=== PATIENT | female | born 1990 | race Hispanic/Latino ===

== ENCOUNTER 2016-04-12 03:17 | Inpatient (IN) | payer OTHER ==
[~2016-04-12] VITALS: Ht 147.3 cm; Wt 58.5 kg
[2016-04-12] MEDS ORDERED: Lactated Ringer's 1,000 ML IV PRN ×2 (03:33→07:55)
[2016-04-12] MEDS ORDERED: Hemorrhage Kit, Post Partum XX ONE ×3 (03:35→13:25)
[2016-04-12] MEDS ORDERED: Carboprost 250 mCg/mL Inj IM PRN ×3 (03:35→13:25)
[2016-04-12] MEDS ORDERED: Sodium Chloride LOK Flush 10 mL Syringe IVFLUSH PRN (03:35)
[2016-04-12] MEDS ORDERED: Oxytocin 10 Unit/mL Inj IM PRN ×3 (03:35→13:25)
[2016-04-12] MEDS ORDERED: Oxytocin 30 Units/500 mL LR 30 UNITS in IV Premix 1 EACH IV PRN ×3 (03:35→13:25)
[2016-04-12] MEDS ORDERED: Ondansetron 2 mg/mL 2 mL Inj IVPUSH PRN ×2 (03:35→08:45)
[2016-04-12] MEDS ORDERED: Methylergonovine 0.2 mg/mL Inj IM PRN ×3 (03:35→13:25)
[2016-04-12 04:13] LABS: Mean Corpuscular Hemoglobin 25.3 pg (27.0-35.0); Mean Corpuscular Volume 81.2 fL (81-100)
[2016-04-12] MEDS ORDERED: PREN1TAB25 PO (05:27)
[2016-04-12] MEDS ORDERED: ACET325T51 PO (05:27)
[2016-04-12] MEDS: fentaNYL-PF 50 mCg/mL 2 mL Inj IVPUSH PRN ×3 (06:48→13:05)
--- NOTE | 2016-04-12 07:42 | PCM.HPOB ---
Subjective Referring Provider: Admitting Physician: Steven Pratt MD Primary Care Physician: Steven Pratt MD Attending Physician: Steven Pratt MD Chief Complaint contractions History of Present History of Present Illness 26yo at 39 w0d by EDC is 04/15/2016 dated by 11wks U/S. OB Problem List: 1. Abnormal pap. 09/26/2015 -PAP ASCUS HPV (+).Plan rpt pap in 12 months. 2. L&I case due to back pain, shoulder pain 3. Tight nuchal cord around neck ( discussed with radiology) and foci in left ventricle seen by perinatologist: abnormal cfDNA test (X triploidy) and mother is a carrier of alpha-sarcoglycanopathy along with consanguinity: counseled by MFM, declined amniocentesis. Father of the baby not tested secondary to job limitations. Plan: chromosomal testing. 4. GERD. 5. Anemia (on iron) not complaint. encouraged to continue to take iron as prescribed. 6. Vit D deficiency, non complaint. encouraged to take Vit D as prescribed. 7. Headache 8. Anxiety. presented C/o of contractions was 5 cm dilated/80%/-2 intact. Past Medical History Gynecologic History: Abnormal pap. 09/26/2015 -PAP ASCUS HPV (+).Plan rpt pap in 12 months. Medical History: 1. Abnormal pap. 09/26/2015 -PAP ASCUS HPV (+).Plan rpt pap in 12 months. 2. L&I case due to back pain, shoulder pain 3. headache. 4. GERD. 5. Anemia . 6. Vit D deficiency 7. Anxiety Surgical History: none Hx Tobacco Use: No Hx Alcohol Use: No Hx Substance Use: No Past Family History Family History DM grandparents. parents in good health Review of Systems ROS 10 points ROS is negative except for items in HPI. Allergy Coded Allergies: No Known Allergies (Verified Allergy, Unknown, 03/13/14) Exam Vital Signs 130/75 HR 85 RR 18 T 36.4 Exam FHT 140 moderate variablity positive accclerations and no declerations TOCO Q 2-4 min Constitutional: Well-developed HEENT: Atraumatic Lungs: Clear to Auscultation Heart: Normal S1, Normal S2, No Murmurs/Rubs/Gallops Abdomen: Gravid Extremities: Pulses Palpable x4 Neurological/Psychiatric: Alert, Oriented X3 Neuro: Normal DTRs Labs/Diagnostics Lab/Diagnostic Information Laboratory Tests 72 Hours Test 04/12/16 04:00 White Blood Count 13.8th/mm3 (3.8-10.1) Red Blood Count 4.46mil/mm3 (3.90-5.20) Hemoglobin 11.3g/dL (12.0-15.6) Hematocrit 36.2% (35.0-46.0) Mean Corpuscular Volume 81.2fL (81-100) Mean Corpuscular Hemoglobin 25.3pg (27.0-35.0) Mean Corpuscular Hemoglobin Concent 31.2% (32.0-37.0) Red Cell Distribution Width 15.6% (12.3-15.4) Platelet Count 224bil/L (150-400) Maternal Blood Type: O (positive) Antibody Screen: negative Group B Strep Results: Negative (at 03/12/16) Additional Information Rubella immune HbsAg NR HIV NR PRP NR OB Intrapartum Assessment/Plan Assessment 26yo at 39 w0d by EDC is 04/15/2016 dated by 11wks U/S. Active labor, intact, GBS negative OB Problem List: 1. Abnormal pap. 09/26/2015 -PAP ASCUS HPV (+).Plan rpt pap in 12 months. 2. L&I case due to back pain, shoulder pain 3. Tight nuchal cord around neck ( discussed with radiology) and foci in left ventricle seen by perinatologist: abnormal cfDNA test (X triploidy) and mother is a carrier of alpha-sarcoglycanopathy along with consanguinity: counseled by [facility], declined amniocentesis. Father of the baby not tested secondary to job limitations. Plan: chromosomal testing. 4. GERD. 5. Anemia (on iron) not complaint. encouraged to continue to take iron as prescribed. 6. Vit D deficiency, non complaint. encouraged to take Vit D as prescribed. 7. Headache 8. Anxiety. Pain Management: admit with orders and labs. Hector Shields MD Apr 12, 2016 07:42
[2016-04-12] MEDS ORDERED: Lactated Ringer's 500 ML IV ONE (08:43)
[2016-04-12] MEDS ORDERED: EPHEDrine Sulfate 50 mg/mL Inj IVPUSH PRN (08:45)
[2016-04-12] MEDS ORDERED: fentaNYL 2 mCg/mL-Bupiv 0.125% 100 ML EPIDURAL SCH (08:45)
[2016-04-12] MEDS ORDERED: Atropine 1 mg/10 mL (Code) Syringe IVPUSH PRN (08:45)
[2016-04-12] MEDS ORDERED: Mineral Oil-Light (Sterile) 25 mL TOPICAL PRN (09:20)
--- NOTE | 2016-04-12 10:16 | PCM.HPANE ---
Patient Data Surgeon Admitting Provider:Steven Pratt MD Attending Provider:Steven Pratt MD Primary Care Physician:Steven Pratt MD Other Provider:Ezra Aldrich Anesthesia Reason for Visit Full Term FULL TERM Ht/WT & BMI Body Mass Index Allergies Coded Allergies: No Known Allergies (Verified Allergy, Unknown, 03/13/14) Diabetes History Hx Diabetes?: No Medications Reported Medications Acetaminophen 325 Mg [id number] Mg PO Q4H PRN For Pain Ref 0 04/12/16 Vit#96/Ferrous Fum/FA ( Tablet)1 Each Tablet1 Each PO DAILY 04/12/16 History Cardiovascular History: Denies:: Congestive Heart Failure Hypertension Respiratory History: Denies:: Tuberculosis Hx Surgeries?: No Hx Diabetes: No Hx Alcohol Use: NoHx Substance Use: No Smoking Status: Never Smoker Have You Smoked inLast 12 mo: No Stop/Bang Risk Assessment Category Category 1A: Patient has history of documented sleep apnea, and HAS NOT received any narcotic, sedative or anesthesia administration during this stay. Category 1B: Patient has history of documented sleep apnea, and HAS received any narcotic , sedative or anesthesia administration during this stay Category 2: Patient has SUSPECTED Obstructive Sleep Apnea, and HAS received any narcotic , sedative or anesthesia administration during this stay. Category 3: Patient has SUSPECTED Obstructive Sleep Apnea and HAS NOT received narcotic, sedative or anesthesia administration during this stay. Category 4: Outpatient in Procedural Areas with known sleep apnea or who screen positive for High Risk via the STOP/BANG questionnaire. Exam Exam General Appearance: Alert, Oriented X3, Cooperative, Mild Distress (labor contraction) HEENT/AIRWAY: MP 2 Lungs: Clear to Auscultation Heart: Exam Unremarkable Meds/Labs/Diagnostics Labs Test 04/12/16 04:00 White Blood Count 13.8th/mm3 (3.8-10.1) Red Blood Count 4.46mil/mm3 (3.90-5.20) Hemoglobin 11.3g/dL (12.0-15.6) Hematocrit 36.2% (35.0-46.0) Mean Corpuscular Volume 81.2fL (81-100) Mean Corpuscular Hemoglobin 25.3pg (27.0-35.0) Mean Corpuscular Hemoglobin Concent 31.2% (32.0-37.0) Red Cell Distribution Width 15.6% (12.3-15.4) Platelet Count 224bil/L (150-400) Plan Impression Patient chart reviewed, patient interviewed and anesthestic plan with risks, benefits, and alternatives discussed, and informed consent obtained. ASA Physical Status: ASA2 Mod Systemic Disease Anesthetic Plan: Epidural Bene/Risks/Altern/Consents: Yes HP Complete Prior to Induction: Yes Manuel Lee MD Apr 12, 2016 08:44
--- NOTE | 2016-04-12 10:20 | PCM.ANEP2 ---
Post Anesthesia Evaluation ASA/CMS Post Anesthesia VS in Patient's Normal Range?: Yes Resp Stable; Airway Patent?: Yes CV Function & Hydration Stable: Yes Mental Status Recovered?: Yes Pain control Satisfactory?: Yes N/V Control Satisfactory?: Yes Additional Comments Aborted procedure after catheter placement secondary to c/o paresthesias in back and legs with loading dose. Catheter removed tip intact. Patient denies any paresthesias and weakness at present. Manuel Pereyra MD Apr 12, 2016 10:20
[2016-04-12] MEDS ORDERED: Lactated Ringer's 1,000 ML IV SCH (13:22)
[2016-04-12] MEDS ORDERED: LANOlin HPA 7 Gm Ointment TOPICAL PRN (13:25)
[2016-04-12] MEDS ORDERED: Witch Hazel-Glycerin Pads TOPICAL PRN (13:25)
[2016-04-12] MEDS ORDERED: Benzocaine (Dermoplast) 20% 60 Gm Spray TOPICAL PRN (13:25)
--- NOTE | 2016-04-12 14:42 | OP ---
[address] [address] OPERATIVE REPORT PATIENT: ALEX STARK : 1990 MR#: [id number] ADMIT: 04/12/2016 JOB ID: [id number] DATE OF SURGERY: 04/12/2016 TIME OF DELIVERY: 04/12/2016, 12:50 SURGEON: Hector Shields MD PREOPERATIVE DIAGNOSIS(ES): 1. Intrauterine at 39 weeks and 0 days. 2. Active labor. 3. Fetus was suspected triploidy 47 XXX. POSTOPERATIVE DIAGNOSIS(ES): 1. Status post spontaneous vaginal delivery. 2. First degree laceration repair. 3. hemorrhage. 4. Fetus with suspected triploidy. PROCEDURE: 1. Spontaneous vaginal delivery with first-degree laceration repair. 2. Manual exploration of the uterine cavity. ESTIMATED BLOOD LOSS: 500 mL. COMPLICATIONS: hemorrhage. OUTCOME: Female delivered in cephalic presentation, occiput anterior position with no nuchal cord. Apgars 9 and 9 at one and five minutes respectively. Meconium stained amniotic fluid. Cord blood gases: pH 7.221, pCO2 52, pO2 23.2, bicarbonate 20.3. base -7.9. PROCEDURE DETAILS: This is a 26-year-old 1, para 0, presented at 39 weeks and 0 days with expected date of delivery of April 15, 2016 dated by 11 week ultrasound presented with a complaint of contraction and was found to be in active labor. Cervix was 5 cm on admission April 12, 2016 at 3:22 a.m. The patient progressed spontaneously in labor and found to be 8 cm dilated at 7:47 a.m. Artificial rupture of membrane was performed with meconium stained fluid. The patient progressed to complete dilation at 11:48 with an urge to push and pushing effectively to deliver on April 12, 2016 at 12:50 via spontaneous vaginal delivery over an intact perineum under intrathecal anesthesia. There was an attempt to place an epidural anesthesia but failed. Delivered a female in occiput anterior position with no nuchal cord. Shoulders delivered without difficulty. The was placed on the maternal abdomen. Delayed cord clamp was performed after 1 minute. Cord was clamped and cut. Cord blood was collected for typing and cord segment was collected for cord gases. Placenta delivered spontaneously intact except for some retained membranes which were removed with assistance of ringed forceps. Manual exploration of the uterine cavity was performed where two fingers were passed in the endometrial cavity and no retained products were palpable. The cervix was examined and no evidence of laceration. 800 mcg of Cytotec was placed rectally. Oxytocin was started after delivery of the placenta and with fundal massage, uterus noted to be firm and bleeding was minimal. Total estimated blood loss 500 mL. The perineum was examined and a small first-degree laceration was repaired with a single figure of eight stitch of 3-0 Vicryl after local anesthesia with 1% lidocaine without epinephrine. Placenta was sent for pathology evaluation. Gross examination revealed an intact placenta and a three-vessel cord. The patient and infant in the delivery room recovering in stable condition. All instrument and needle counts were correct x2. Infant weight is pending. Brenda, Hector Shields, was present and performed and scrubbed for the entire delivery. The dental nurse was present in the room for the delivery. RAMSES
[2016-04-12] MEDS: Lactated Ringer's 1,000 ML IV SCH ×2 (15:00→20:30)
[2016-04-12] MEDS ORDERED: Sodium Chloride LOK Flush 10 mL Syringe IVFLUSH SCH (16:30)
[2016-04-12] MEDS ORDERED: Ascorbic Acid 500 mg Tablet PO SCH (17:30)
[2016-04-12] MEDS ORDERED: Lidocaine 2% 5 mL Urojet Topical Jelly Syringe ONE (18:34)
[2016-04-12] MEDS: oxyCODONE-Acetamin 5-325 mg Tablet PO PRN (18:44)
[2016-04-13] MEDS: oxyCODONE-Acetamin 5-325 mg Tablet PO PRN
[2016-04-13 07:23] LABS: Mean Corpuscular Hemoglobin 24.8 pg (27.0-35.0); Mean Corpuscular Volume 77.9 fL (81-100)
--- NOTE | 2016-04-13 13:46 | PCM.DIOB ---
Obstetrical Disch Instruction Date of Service: Apr 13, 2016 Dates of Hospitalization Date of Hospital Admission Apr 12, 2016 at 03:30 Providers Admitting Physician: Steven Pratt MD Primary Care Physician: Steven Pratt MD Attending Physician: Steven Pratt MD Discharge Diagnosis Discharge Diagnosis PPD#1 S/P , Anemia Problems: Diet Discharge Diet: No restrictions Activity Discharge Activity-General: Pelvic Rest for 6 weeks, No lifting >10 pounds for 4-6 weeks Dressing and Incisional Care Hygiene: May shower Follow Up Plan Follow-up Provider (F9): Hector Shields MD Follow-up appointment: Weeks (2) Call your provider for: Fever or Chills, Shortness of breath, Heavy vaginal bleeding, Other (excessive pain not controlled with pain medications.) Steven Pratt MD Apr 13, 2016 13:46
[2016-04-13] MEDS ORDERED: IBUP-1827 PO (13:49)
[2016-04-13] MEDS ORDERED: Ascorbic Acid PO (13:49)
[2016-04-13] MEDS ORDERED: DOCU-41 PO (13:49)
[2016-04-13] MEDS ORDERED: FERR-74 PO (13:49)
[2016-04-13 13:58] VITALS: BP 105/73; PULSE 66; RESP 17
--- NOTE | 2016-04-13 14:10 | DIS ---
[address] [address] DISCHARGE SUMMARY PATIENT: ALEX STARK : 1990 MR#: [id number] ADMIT: 04/12/2016 JOB ID: [id number] DIS: 04/13/2016 Date of admission is April 12, 2016. Admitted by Dr. Shields for active labor. Discharged on April 13, 2016. DISCHARGE DIAGNOSIS: day #1 status post spontaneous vaginal delivery and anemia. Baby was suspected trisomy triploidy X. For further details, please refer to the fully dictated notes. On the day of discharge, the patient had no complaints. Voiding, ambulating, tolerating p.o. intake. with no difficulties. OBJECTIVE: Vital signs are 105/73 for blood pressure, respirations are 17, pulse is 66, temperature 36.7 degrees centigrade. Heart is regular rate and rhythm. Positive S1, S2. Lungs clear to auscultation bilaterally. Abdomen firm. Uterine fundus palpated at 1 cm below the umbilicus. Nontender. Positive bowel sounds. Nondistended abdomen. Perineum: No active bleeding. Lower extremities: No calf tenderness appreciated bilaterally. H and H on this morning is 8.1 and 25.4. Platelets are 188. White blood count 17.9. DISCHARGE PLAN: The patient will be discharged home in stable condition. Will followup with Dr. Shields in the office in two weeks. Instructed to have nothing in the vagina for six weeks. No heavy lifting more than baby's weight. Instructed to call for fever, chills, severe abdominal pain not controlled with pain medication, heavy vaginal bleeding, or any other concerning symptoms. DISCHARGE MEDICATIONS: 1. Ibuprofen 600 mg every 6 hours as needed for pain. 2. Colace 100 mg twice daily. 3. Ferrous sulfate 325 mg twice daily. 4. Vitamin C 500 mg twice daily. 5. vitamins once daily. The patient understood her discharge instructions. She will comply with her discharge plan. E.J. NOBLE HOSPITALJaci
--- NOTE | 2016-04-15 15:33 | PATH ---
SURGICAL PATHOLOGY Attending Physician:Hector Shields CASE STATUS: Signed Out PATIENT NAME: ALEX STARK PID: [id number] : 1990 DATE COLLECTED:04/12/2016 00:00 SPECIMEN: Placenta CLINICAL HISTORY: SPONTANEOUS VAGINAL DELIVERY, SUSPECTED TRIPLOIDY (47-XXX), GESTATIONAL AGE 39 WEEKS 0 DAYS HEMORRHAGE 1). PLACENTA FINAL DIAGNOSIS: 1.PLACENTA: ROSALES PLACENTA WITH ACUTE CHORIOAMNIONITIS AND LOW PLACENTAL WEIGHT (LESS THAN 10TH PERCENTILE FOR 39 WEEKS GESTATION). SMALL INFARCT (1.5 CM). ICD10 CODE O41.1 O43.8 GROSS DESCRIPTION: The specimen is received in formalin, labeled with the patient's name and consists of an intact placenta and includes placental disc (330 g, 15.5 x 15.0 x 2.2 cm), umbilical cord (length-5.3 cm, diameter-0.8 x 0.2 cm) and membranes. The membranes are torn and are semi-translucent. The rupture site cannot be determined. The umbilical cord is attached 3.5 cm from the edge of the placenta and contains 3 vessels. The surface is smooth and shiny with no evidence of meconium identified. The maternal surface is dark maroon with normal cotyledon formation. The placental disc is spongy and contains a pale yellow rubbery well-circumscribed nodule (1.5 x 1.1 x 0.6 cm). No hematomas, infarcts, other nodules, masses, or lesions are identified. Section code: (A) membranes, umbilical cord; (B-D) placenta, 3 full thickness sections. 04/14/16 JM MICRO DESCRIPTION: See diagnosis. ICD-9 CODES: CPT CODES: 1: 93020 Electronically Signed Out Joyce Hess MD [facility] [address], [place] [address] Technical component performed at [facility], [facility] [address], [place], [address]
== END 2016-04-13 14:58 | disposition home or self-care (01) | DRG 560 ==
LOC: FBCO 03:17 → FBC 03:30
PROVIDERS: ADMIT Obstetrics & Gynecology; ATTEND Obstetrics & Gynecology
PROC: 10E0XZZ Delivery of Products of Conception, External Approach (ICD-10-PCS; principal; 2016-04-12)
PROC: 0HQ9XZZ Repair Perineum Skin, External Approach (ICD-10-PCS; 2016-04-12)
PROC: 10907ZC Drainage of Amniotic Fluid, Therapeutic from Products of Conception, Via Natural or Artificial Opening (ICD-10-PCS; 2016-04-12)
DX: O70.0 First degree perineal laceration during delivery (principal); O72.1 Other immediate postpartum hemorrhage; O99.02 Anemia complicating childbirth; O77.0 Labor and delivery complicated by meconium in amniotic fluid; Z3A.39 39 weeks gestation of pregnancy; Z37.0 Single live birth